=== PATIENT | male | born 1980 | race Caucasian/White ===

== ENCOUNTER 2017-04-13 13:01 | Emergency (ER) | payer SELFPAY ==
[2017-04-13] MEDS ORDERED: BOOSTRIX IM ONE ×2 (13:10→20:22)
--- NOTE | 2017-04-13 13:12 | Emergency Department Report ---
Chief Complaint: Extremity Injury, Upper Stated Complaint: RT MIDDLE FINGER INJURY Time Seen by Provider: 04/13/17 13:10 - HPI History of Present Illness: R middle finger was crushed by wood. gradual onset of finger swelling and pain - ROS Review of Systems: + pain + swelling - Exam Vital Signs: Vital Signs 04/13/17 13:07 Temperature 98.7 F Pulse Rate 80 Respiratory 16 Rate Blood Pressure 105/80 O2 Sat by Pulse 100 Oximetry Physical Exam: R middle finger with scabs, + swelling MSE screening note: Focused history and physical exam performed. Due to findings the following was ordered: xr, td ED Disposition for MSE Condition: Stable
--- NOTE | 2017-04-13 13:58 | XRay Report ---
Right third finger: Crush injury. There is swelling of the soft tissues predominantly around the PIP joint. No laceration no foreign body noted. No fracture and no dislocation. Impressions: Soft tissue injury of the third digit.
[2017-04-13] MEDS ORDERED: ROCEPHIN IM ONE (22:05)
--- NOTE | 2017-04-13 22:13 | Emergency Department Report ---
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 Pt reported to redness, swelling, oozing, and pus at the site. He reports to pain at the site. Pt denies any numbness, tingling, loss of sensation at this time. Pt has been taking tylenol and ibuprofen with mild relief of the pain. Pt denies any limitation with ROM at this time. Complaint: Injury to:: right, finger -: Sudden, days(s) (6) Other Extremity Injury: Fingers: Right (middle finger) Other Injuries: none Handedness: right Place: work Improves With: medication, rest Worsens With: movement of extremity Context: direct blow, laceration Associated Symptoms: denies: weakness, numbness, suspects foreign body Treatments Prior to Arrival: NSAIDS, other (tylenol) - Related Data Previous Rx's Medication Instructions Recorded Last Taken Type Mupirocin [Bactroban 2%] 1 applic TP TID #1 tube 04/13/17 Unknown Rx Sulfamethoxazole/Trimethoprim 1 each PO BID #20 tablet 04/13/17 Unknown Rx [Bactrim DS TAB] Allergies Allergy/AdvReac Type Severity Reaction Status Date / Time No Known Allergies Allergy Unverified 04/13/17 13:07 ED Review of Systems ROS: Stated complaint: RT MIDDLE FINGER INJURY Other details as noted in HPI Constitutional: denies: chills, fever Eyes: denies: eye pain, eye discharge, vision change ENT: denies: ear pain, throat pain Respiratory: denies: cough, shortness of breath, wheezing Cardiovascular: denies: chest pain, palpitations Endocrine: no symptoms reported Gastrointestinal: denies: abdominal pain, nausea, diarrhea Genitourinary: denies: urgency, dysuria Musculoskeletal: joint swelling, arthralgia, myalgia Skin: as per HPI (redness, swelling, oozing ) Neurological: denies: headache, weakness, paresthesias Psychiatric: denies: anxiety, depression ED Past Medical Hx - Past Medical History Previous Medical History?: No - Surgical History Past Surgical History?: No - Social History Smoking Status: Current Every Day Smoker Substance Use Type: Alcohol - Medications Home Medications: Home Medications Medication Instructions Recorded Confirmed Last Taken Type Mupirocin [Bactroban 2%] 1 applic TP TID #1 tube 04/13/17 Unknown Rx Sulfamethoxazole/Trimethoprim 1 each PO BID #20 tablet 04/13/17 Unknown Rx [Bactrim DS TAB] ED Physical Exam - General Limitations: Language Barrier General appearance: alert, in no apparent distress - Head Head exam: Present: atraumatic, normocephalic - Eye Eye exam: Present: normal appearance - ENT ENT exam: Present: mucous membranes moist - Respiratory Respiratory exam: Present: normal lung sounds bilaterally. Absent: respiratory distress - Cardiovascular Cardiovascular Exam: Present: regular rate, normal rhythm. Absent: systolic murmur, diastolic murmur, rubs, gallop - Extremities Exam Extremities exam: Present: full ROM (capillary refill and pulses are both normal , sensation is intact, ROM is full of the injured joint, hemodynamically and neurovascularly intact) - Skin Skin exam: Present: warm (redness, swelling, oozing noted at the site, TTP at the PIP joint of the Right middle finger). Absent: rash ED Course Vital Signs 04/13/17 13:07 Temperature 98.7 F Pulse Rate 80 Respiratory 16 Rate Blood Pressure 105/80 O2 Sat by Pulse 100 Oximetry ED Medical Decision Making - Medical Decision Making pt presented with a right middle finger injury that occured 6 days ago when he was at work at his finger got smashed between two wood pieces. Pt did no seek medical attention till today, he has denied any signs of systemic infection. Xray was unremarkable for osteomylitis, or fractures, only swelling was noted. We has cleaned the area at the ED and applied triple antibiotic cream to the site. We have also given him 1 gram of rocephin today in house, and oral bactrim DS BID for 10 days. I am also giving him bactroban ointment for home. I have discussed plan with Dr. Esparza who is in agreement. Pt notified to return to the ED with if numbess, tingling, or loss of ROM occurs. No signs of resp distress, pt alert and oriented during examination. Critical care attestation.: If time is entered above; I have spent that time in minutes in the direct care of this critically ill patient, excluding procedure time. ED Disposition Clinical Impression: Cellulitis Qualifiers: Site of cellulitis: extremity Site of cellulitis of extremity: finger Laterality: right Qualified Code(s): L03.011 - Cellulitis of right finger Disposition: TO HOME OR SELFCARE Is pt being admited?: No Does the pt Need Aspirin: No Condition: Stable Instructions: Cellulitis (ED) Additional Instructions: Please clean area 2-3 times a day with warm soap and water. Please apply the bactroban to the site after cleaning and keep the area covered. Please take the medications as prescribed to you today exactly as directed. Please return to the ER is acutely worsening symptoms such as: fever, chills, increased redness, swelling, loss of motion, numbness, or tingling. Otherwise, follow-up with PCP. Prescriptions: Mupirocin [Bactroban 2%] 1 applic TP TID #1 tube Sulfamethoxazole/Trimethoprim [Bactrim DS TAB] 1 each PO BID #20 tablet Referrals: [facility] [Outside] - 3-5 Days PRIMARY CAREMD [Primary Care Provider] - 3-5 Days INO SIDDIQI MD [Staff Physician] - 3-5 Days Forms: Accompanied Note, Work/School Release Form(ED) Time of Disposition: 23:22
[2017-04-13] MEDS ORDERED: TRIPLE ANTIBIOTIC TP ONE ×2 (22:25→22:38)
[2017-04-13] MEDS ORDERED: NACL 0.9% 500 ML IR ONE (22:26)
[2017-04-13] MEDS ORDERED: NACL 0.9% IR ONE (22:30)
[2017-04-14 00:41] VITALS: BP 110/77
== END 2017-04-13 23:45 | disposition home or self-care (01) ==
LOC: ED 13:01
DX: L03.011 Cellulitis of right finger (principal); F17.210 Nicotine dependence, cigarettes, uncomplicated
CPT/HCPCS: 73140; 90471; 90715; 96372; 99283; J0696; A6250